=== PATIENT | male | born 1980 | race Two or more races ===

== ENCOUNTER 2025-09-07 16:36 | Emergency (ER) | payer OTHER ==
[~2025-09-07] VITALS: Ht 177.8 cm; Wt 75.7 kg
[2025-09-07] MEDS ORDERED: SYNTHROID50 MCG (16:58)
[2025-09-07 16:59] VITALS: BP 134/85; O2SAT 100
[2025-09-07] MEDS ORDERED: DEXAMETHASONE SODIUM PHOSPHATE 4 MG/ML VIAL IM STA (17:50)
[2025-09-07] MEDS ORDERED: CEFTRIAXONE SODIUM 1,000 MG VIAL IM STA (17:50)
[2025-09-07] MEDS ORDERED: BACTRIM DS TAB1 EACH PO (17:54)
[2025-09-07] MEDS ORDERED: DEXAMETHASONE SODIUM PHOSPHATE 4 MG/ML VIAL ONE (17:57)
[2025-09-07] MEDS ORDERED: CEFTRIAXONE SODIUM 1,000 MG VIAL ONE (17:57)
== END 2025-09-07 18:15 | disposition home or self-care (01) ==
LOC: ER 16:36
DX: T63.441A Toxic effect of venom of bees, accidental (unintentional), initial encounter (principal); E03.8 Other specified hypothyroidism